=== PATIENT | male | born 1985 | race Caucasian/White ===

== ENCOUNTER 2022-12-07 19:40 | Emergency (ER) | payer OTHER ==
[~2022-12-07] VITALS: Ht 177.8 cm; Wt 99.8 kg
--- NOTE | 2022-12-07 20:11 | NUR ---
TO ER BED 1, BIBS FOR L POSTERIOR GORDON PAIN AND REDNESSX 5 DAYS, AAOX4, BREATHING EVEN AND NON LABORED, CONNECTED TO MONITOR.
[2022-12-07] MEDS ORDERED: KETOROLAC TROMETHAMINE INJ 30 MG/ML VIAL ONE (22:00)
[2022-12-07] MEDS ORDERED: GABAPENTIN 100 MG CAPSULE ONE (22:01)
[2022-12-07] MEDS: GABAPENTIN 100 MG CAPSULE PO ONE (22:04)
[2022-12-07] MEDS: KETOROLAC TROMETHAMINE INJ 60 MG/2 ML VIAL IM ONE (22:04)
--- NOTE | 2022-12-07 23:09 | NUR ---
Patient discharged to home in stable condition. Written and verbal after care instructions given. Patient verbalizes understanding of instruction.
[2022-12-07 23:11] VITALS: BP 132/80
== END 2022-12-07 23:11 | disposition home or self-care (01) ==
LOC: ER 19:45
DX: T63.2X1A Toxic effect of venom of scorpion, accidental (unintentional), initial encounter (principal); M79.662 Pain in left lower leg; Y92.89 Other specified places as the place of occurrence of the external cause
CPT/HCPCS: 99285; 93971; 93926; 96372; J1885